=== PATIENT | female | born 1985 | race Caucasian/White ===

== ENCOUNTER 2016-10-26 03:23 | Emergency (ER) | payer BC, MEDICAID ==
[~2016-10-26] VITALS: Ht 165.1 cm; Wt 59.0 kg
[~2016-10-26 03:23] MED LIST: ACET650S4 PO; PREN1TAB30 PO; Z.0.NO CURRENT MEDS; ZOFR4TAB3 SL
[2016-10-26 03:27] VITALS: BP 117/75; PULSE 77; RESP 16; TEMP 97.7; O2SAT 100
--- NOTE | 2016-10-26 03:54 | PD ---
HPI Chief Complaint: Oral / Dental Pain or Problem Time Seen by Provider: 03:47 Travel History International Travel<30 days: No Contact w/Intl Traveler<30days: No Traveled to known affect area: No History of Present Illness HPI This is a 30-year-old female who is currently 13 weeks . She presents for evaluation of a toothache. Symptoms started 3 days ago. The pain is a throbbing pain localized to left maxillary third molar that is worse with chewing. She has been using Tylenol for pain relief. No fevers, chills, dental trauma. No other complaints. PFSH Past Medical History Diminished Hearing: No Immunizations Current: No ?: LMP: 07/23/16 Menopausal: No : 4 Para: 1 Miscarriage: 3 : 3 Past Surgical History Appendectomy: Yes Social History Alcohol Use: No Tobacco Use: No Substance Use: No Allergies-Medications (Allergen,Severity, Reaction): Coded Allergies: No Known Allergies (Verified , 10/26/16) Reported Meds & Prescriptions Reported Meds & Active Scripts Active Penicillin V Potassium 500 Mg Tab 500 Mg PO Q8H 7 Days Magic Mouthwash Adult Liq (Multi-Ingredient Mouthwash/Gargle) 120 Ml Susp 10 Ml SWISH-SPIT 5 TIMES A DAY PRN Each 5 mL contains: Nystatin 200,000 units, Diphenhydramine 4.25 mg, Viscous Lidocaine 10 mg, Anthony syrup 0.8 mL Review of Systems General / Constitutional: No: Fever, Chills HENT: Positive: Dental Difficulties Physical Exam Narrative GENERAL: Well-developed well-nourished female in no acute distress SKIN: Warm and dry. HEAD: Atraumatic. Normocephalic. EYES: Pupils equal and round. No scleral icterus. No injection or drainage. ENT: No nasal bleeding or discharge. Mucous membranes pink and moist. The left maxillary third molar is decayed, tender to palpation. There is no gingival edema, no facial edema, no trismus NECK: Trachea midline. No JVD. No lymphadenopathy Data Data Last Documented VS Vital Signs Date Time Temp Pulse Resp B/P Pulse Ox O2 Delivery O2 Flow Rate FiO2 10/26/16 03:27 97.7 77 16 117/75 100 MDM Medical Decision Making Medical Screen Exam Complete: Yes Emergency Medical Condition: Yes Medical Record Reviewed: Yes Differential Diagnosis Dental caries, pulpitis, pericoronitis, periodontal abscess, dental impaction, dental fracture Narrative Course 30-year-old female who has had a toothache for 3 days. Examination reveals dental decay localized to left maxillary third molar. Plan is for outpatient follow-up with a dentist for definitive therapy, short course of Magic mouthwash and penicillin by mouth. Diagnosis Primary Impression: Dental caries Additional Instructions: Follow-up with a dentist for definitive therapy. Return for any emergent medical conditions. Med/Other Pt SpecificInfo: Prescription(s) given Scripts Penicillin V Potassium 500 Mg Tmy379 Mg PO Q8H 7 Days Ref 0 Prov:Jerel Gautam MD 10/26/16 Vlngghru-Minjyvoyypjwfsm-Kvzpkynrx Liq (Magic Mouthwash Adult Liq)120 Ml Susp10 Ml SWISH-SPIT 5 TIMES A DAY PRN (Mouth sores) #120 ML Ref 0 Each 5 mL contains: Nystatin 200,000 units, Diphenhydramine 4.25 mg, Viscous Lidocaine 10 mg, Anthony syrup 0.8 mL Prov:Jerel Gautam MD 10/26/16 Disposition: 01 DISCHARGE HOME Condition: Stable uLx Martinez Oct 26, 2016 03:54
[2016-10-26] MEDS ORDERED: MAGICADU2 SWISH-SPIT (03:55)
[2016-10-26] MEDS ORDERED: PENI500T PO (03:55)
== END 2016-10-26 04:08 | disposition home or self-care (01) ==
LOC: NEPB 03:23
DX: O26.891 Other specified pregnancy related conditions, first trimester (principal); K02.9 Dental caries, unspecified; K08.89 Other specified disorders of teeth and supporting structures
CPT/HCPCS: 99282